=== PATIENT | female | born 1955 | race Caucasian/White ===

== ENCOUNTER 2017-03-11 08:17 | Emergency (ER) | payer OTHER ==
[2017-03-11] MEDS ORDERED: 0.9 % SODIUM CHLORIDE 10 ML DISP.SYRIN. IV PRN (08:45)
--- NOTE | 2017-03-11 08:56 | RAD ---
Indication chest pain. A single view of the chest was obtained. No prior imaging of the chest is available. The heart size is at the upper limits of normal. There is no congestive heart failure. There is no focal infiltrate seen. No pleural fluid or pneumothorax is seen. IMPRESSION: No acute or focal process seen in the chest
[2017-03-11] MEDS ORDERED: IV NORMAL SALINE 1,000ML 1,000 ML ONE (09:07)
[2017-03-11 09:12] LABS: BASO % 0 % (0-3); EOS # 0.1 x10^3/uL (0.0-0.7); EOS % 1 % (0-3); HEMATOCRIT 40.9 % (36.0-47.0); HEMOGLOBIN 13.9 g/dL (12.0-15.5); LYMPH # 1.5 x10^3/uL (1.0-4.8); LYMPH % 16 % (24-48); MEAN CORPUSCULAR HEMOGLOBIN 27 pg (25-35); MEAN CORPUSCULAR HGB CONC 34 g/dL (31-37); MEAN CORPUSCULAR VOLUME 79 fL (79-100); MONO # 0.4 x10^3/uL (0.0-1.1); MONO % 4 % (0-9); NEUT # 7.5 x10^3uL (1.8-7.7); NEUT % 79 % (31-73); PLATELET COUNT 361 x10^3/uL (140-400); RED BLOOD COUNT 5.15 x10^6/uL (3.50-5.40); RED CELL DISTRIBUTION WIDTH 14.5 % (11.5-14.5); WHITE BLOOD COUNT 9.5 x10^3/uL (4.0-11.0)
[2017-03-11] MEDS ORDERED: HEPARIN for IV BOLUS 10,000 UNIT/10 ML VIAL. ONE (09:15)
[2017-03-11] MEDS ORDERED: HEPARIN for IV BOLUS 10,000 UNIT/10 ML VIAL. IV ONE (09:15)
--- NOTE | 2017-03-11 09:19 | PHYS DOC ---
Adult General Chief Complaint Chief Complaint: CHEST PAIN HPI HPI Patient is a 61year-old year old female who presents with chest pain she states that as exam she has severe pain in her chest that was about 7 on a 10 scale and last about 1-1/2 hours. He became diaphoretic nauseated and vomited. After about an hour and a half the pain subsided and she presents now just feeling somewhat weak. She is a strong family history of heart disease in that her father had a heart attack she is not a diabetic she does have hypertension and does have high cholesterol Review of Systems Review of Systems Constitutional: Denies fever or chills [] Eyes: Denies change in visual acuity, redness, or eye pain [] HENT: Denies nasal congestion or sore throat [] Respiratory: Denies cough or shortness of breath [] Cardiovascular: No additional information not addressed in HPI [] GI: She had some nausea and some vomiting [] : Denies dysuria or hematuria [] Musculoskeletal: Denies back pain or joint pain [] Integument: Denies rash or skin lesions [] Neurologic: Denies headache, focal weakness or sensory changes [] Endocrine: Denies polyuria or polydipsia [] Current Medications Current Medications Current Medications Medications (Trade) Dose Ordered Sig/[place] Start Time Stop Time Status Last Admin Dose Admin Sodium Chloride (Normal Saline Flush) 10 ml QSHIFT PRN 03/11/17 08:45 UNV Physical Exam Physical Exam Constitutional: Well developed, well nourished, no acute distress, non-toxic appearance. [] HENT: Normocephalic, atraumatic, bilateral external ears normal, oropharynx moist, no oral exudates, nose normal. [] Eyes: PERRLA, EOMI, conjunctiva normal, no discharge. [] Neck: Normal range of motion, no tenderness, supple, no stridor. [] Cardiovascular:Heart rate regular rhythm, no murmur [] Lungs & Thorax: Bilateral breath sounds clear to auscultation [] Abdomen: Bowel sounds normal, soft, no tenderness, no masses, no pulsatile masses. [] Skin: Warm, dry, no erythema, no rash. [] Back: No tenderness, no CVA tenderness. [] Extremities: No tenderness, no cyanosis, no clubbing, ROM intact, no edema. [] Neurologic: Alert and oriented X 3, normal motor function, normal sensory function, no focal deficits noted. [] Psychologic: Affect normal, judgement normal, mood normal. [] EKG EKG EKG reveals sinus rhythm with a left axis deviation the patient has J-point elevation in lead 1 however it appears that there is some elevation in aVL V2 and V3 and reciprocal changes in leads 2 and 3 and aVF because of these changes it may represent early repolarization but with her history and her risk factors I have called a STEMI she will be sent to the [facility] under the care of a entry manager [] Radiology/Procedures Radiology/Procedures [] Impressions: Acute septal myocardial infarction Course & Med Decision Making Course & Med Decision Making Pertinent Labs and Imaging studies reviewed. (See chart for details) [] Dragon Disclaimer Dragon Disclaimer This chart was dictated in whole or in part using Voice Recognition software in a busy, high-work load, and often noisy Emergency Department environment. It may contain unintended and wholly unrecognized errors or omissions. Departure Departure: Disposition: 09 ADMITTED INPATIENT Condition: CRITICAL Referrals: WERO LARA (PCP) SEEMA VIDAL MD March 11, 2017 09:19
[2017-03-11 09:25] VITALS: BP 142/89
[2017-03-11] MEDS ORDERED: ONDANSETRON PF 4 MG/2 ML VIAL. ONE (09:29)
[2017-03-11] MEDS ORDERED: ONDANSETRON PF 4 MG/2 ML VIAL. IV ONE ×2 (09:30→10:00)
[2017-03-11 09:42] LABS: ALBUMIN 3.5 g/dL (3.4-5.0); ALBUMIN/GLOBULIN RATIO 0.9 (1.0-1.7); CALCIUM 9.1 mg/dL (8.5-10.1); GFR 56.6; POTASSIUM 3.9 mmol/L (3.5-5.1); TOTAL BILIRUBIN 0.4 mg/dL (0.2-1.0); TOTAL PROTEIN 7.6 g/dL (6.4-8.2)
[2017-03-11] MEDS ORDERED: IV NORMAL SALINE 1,000ML 1,000 ML IV ONE (10:00)
--- NOTE | 2017-03-11 10:24 | EKG ---
[address] [address] Test Date: 2017-03-11 Test Time: 08:29:43 Pat Name: JOHNATHON MORENO Department: Room: Gender: F [employer]: : [id number] Requested By: SEEMA VIDAL Order Number: [id number] Reading MD: Lul Arnold Measurements Intervals [place] Rate: 58 P: 37 [place]: 164 QRS: -10 QRSD: 92 T: 26 QT: 396 QTc: 388 Interpretive Statements SINUS RHYTHM INFERIOR/LATERAL ISCHEMIA Electronically Signed On 03-14-2017 14:14:34 CDT by Lul Arnold
== END 2017-03-11 09:30 | disposition other institution (70) ==
LOC: ER 08:17
DX: I21.3 ST elevation (STEMI) myocardial infarction of unspecified site (principal)
CPT/HCPCS: 36415; 71010; 80053; 84484; 85027; 85379; 93005; 96374; 96375; 99285; J1644; J2405; J7030